=== PATIENT | female | born 2000 | race Caucasian/White ===

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

== ENCOUNTER 2019-10-23 22:57 | Emergency (ER) | payer OTHER, SELFPAY | END 2019-10-23 23:26 | disposition home or self-care (01) | LOC: ERS 22:57 | DX: R21 Rash and other nonspecific skin eruption (principal); G43.909 Migraine, unspecified, not intractable, without status migrainosus; J45.909 Unspecified asthma, uncomplicated; F90.9 Attention-deficit hyperactivity disorder, unspecified type | CPT/HCPCS: 99282 ==

== ENCOUNTER 2020-01-23 13:20 | Emergency (ER) | payer SELFPAY ==
[2020-01-23] MEDS ORDERED: Lidocaine 1% w/Epinephrine 1:100K 20 ML VIAL ONE (13:41)
[2020-01-23] MEDS ORDERED: Boostrix 0.5 ML (Tdap) VIAL ONE (13:43)
== END 2020-01-23 14:20 | disposition home or self-care (01) ==
LOC: ERS 13:20
DX: L02.31 Cutaneous abscess of buttock (principal); G43.909 Migraine, unspecified, not intractable, without status migrainosus; J45.909 Unspecified asthma, uncomplicated; F90.9 Attention-deficit hyperactivity disorder, unspecified type
CPT/HCPCS: 10060; 90471; 90715

== ENCOUNTER 2020-07-07 20:52 | Emergency (ER) | payer OTHER, SELFPAY ==
[2020-07-07] MEDS ORDERED: Metoclopramide HCl 10 MG/2 ML VIAL ONE (21:20)
[2020-07-07] MEDS ORDERED: diphenhydrAMINE 50 MG/ML VIAL ONE (21:20)
== END 2020-07-07 23:12 | disposition home or self-care (01) ==
LOC: ERS 20:52
DX: O99.891 Other specified diseases and conditions complicating pregnancy (principal); R51.9 Headache, unspecified; Z3A.20 20 weeks gestation of pregnancy
CPT/HCPCS: 96365; 96375; J1200; J2765